=== PATIENT | male | born 1945 | race Caucasian/White ===

== ENCOUNTER 2018-03-24 04:08 | Emergency (ER) | payer MEDICARE ==
[~2018-03-24] VITALS: Ht 185.4 cm; Wt 95.0 kg
[2018-03-24] MEDS ORDERED: PLEASE ENTER ALLERGIES MC SCH (04:30)
[2018-03-24] MEDS ORDERED: SODIUM CHLORIDE FLUSH 10ML SYR IVF ONE (04:30)
[2018-03-24] MEDS ORDERED: MORPHINE SULFATE 4 MG/ML, 1ML IVPush PRN (04:30)
[2018-03-24] MEDS ORDERED: KETOROLAC 30 MG/1 ML IVPush ONE (04:30)
[2018-03-24 04:56] LABS: BASOPHILS # (AUTO) 0.03 x10^3/uL (0-0.1); BASOPHILS % (AUTO) 1 % (0-1); EOSINOPHILS % (AUTO) 5 % (1-7); LYMPHOCYTES # (AUTO) 1.55 x10^3/uL (1-3.4); LYMPHOCYTES % (AUTO) 25 % (22-44); MD NO; MEAN CORPUSCULAR HEMOGLOBIN 34.1 pg (27.5-34.5); MEAN CORPUSCULAR HGB CONC 34.5 g/dL (33.2-36.2); MEAN PLATELET VOLUME 7.9 fL (7.4-10.4); MONOCYTES # (AUTO) 0.66 x10^3/uL (0.2-0.8); MONOCYTES % (AUTO) 11 % (2-9); NEUTROPHILS # (AUTO) 3.61 x10^3/uL (1.8-6.8); NEUTROPHILS % (AUTO) 59 % (42-75); PLATELET COUNT 209 x10^3/uL (130-400); RED BLOOD COUNT 4.36 x10^6/uL (4.38-5.82)
[2018-03-24 05:00] LABS: ALANINE AMINOTRANSFERASE 36 U/L (12-78); ALBUMIN 3.5 g/dL (3.4-5.0); ANION GAP 8 mmol/L (5-15); CALCIUM 8.1 mg/dL (8.5-10.1); CHLORIDE 109 mmol/L (98-107); CREATININE 0.65 mg/dL (0.7-1.3)
[2018-03-24] MEDS ORDERED: KETOROLAC 30 MG/1 ML ONE (05:00)
[2018-03-24] MEDS ORDERED: MORPHINE SULFATE 4 MG/ML, 1ML ONE (05:01)
[2018-03-24 05:02] LABS: ALKALINE PHOSPHATASE 67 U/L (45-117); BILIRUBIN,TOTAL 0.5 mg/dL (0.2-1.0)
[2018-03-24 05:30] LABS: CULTURE INDICATED? NO; MICROSCOPIC NOT IND
[2018-03-24] MEDS ORDERED: METHOCARBAMOL 1,000 MG in DEXTROSE 5% 100 ML IV ONE (06:00)
[2018-03-24 07:57] VITALS: BP 148/72
== END 2018-03-24 08:00 | disposition home or self-care (01) ==
LOC: ED 06:12
DX: S39.012A Strain of muscle, fascia and tendon of lower back, initial encounter (principal); S29.012A Strain of muscle and tendon of back wall of thorax, initial encounter; K76.89 Other specified diseases of liver; I25.2 Old myocardial infarction; Z85.850 Personal history of malignant neoplasm of thyroid; X58.XXXA Exposure to other specified factors, initial encounter; Y93.89 Activity, other specified; Y92.89 Other specified places as the place of occurrence of the external cause; Y99.8 Other external cause status
CPT/HCPCS: 36415; 74176; 80053; 81003; 83690; 85025; 96365; 96375; 99285; J1885; J2800